=== PATIENT | male | born 1975 | race Caucasian/White ===

== ENCOUNTER → 2017-11-21 | Outpatient (CLI) | payer OTHER | END | disposition home or self-care (01) | LOC: OLS 10:00 | DX: Z48.816 Encounter for surgical aftercare following surgery on the genitourinary system (principal); Z98.52 Vasectomy status ==

== ENCOUNTER 2025-08-29 11:10 | Emergency (ER) | payer OTHER, BC ==
[~2025-08-29] VITALS: Ht 177.8 cm; Wt 99.8 kg
[2025-08-29 11:18] VITALS: BP 133/93
== END 2025-08-29 13:43 | disposition home or self-care (01) ==
LOC: ER 11:10
DX: S69.91XA Unspecified injury of right wrist, hand and finger(s), initial encounter (principal); W01.0XXA Fall on same level from slipping, tripping and stumbling without subsequent striking against object, initial encounter
CPT/HCPCS: 73130; 99283-25